=== PATIENT | female | born 1990 | race Two or more races ===

== ENCOUNTER 2024-04-30 15:39 | Emergency (ER) | payer OTHER, SELFPAY ==
[~2024-04-30] VITALS: Ht 154.9 cm; Wt 56.7 kg
[2024-04-30 16:02] VITALS: BP 115/82; PULSE 104; RESP 16; TEMP 99.1; O2SAT 97
[2024-04-30] MEDS ORDERED: ACYC400T16 PO (16:41)
[2024-04-30] MEDS ORDERED: HYDR-4902 PO (16:41)
== END 2024-04-30 16:54 | disposition home or self-care (01) ==
LOC: ER 15:39
DX: B02.9 Zoster without complications (principal); M79.642 Pain in left hand; Z79.899 Other long term (current) drug therapy